=== PATIENT | male | born 1970 | race African-American/Black ===

== ENCOUNTER 2022-03-18 23:37 | Emergency (ER) | payer OTHER ==
[~2022-03-18] VITALS: Ht 175.3 cm; Wt 34.0 kg
--- NOTE | 2022-03-18 23:45 | NUR ---
BIBRA 89 FROM HOME C/O WEAKNESS, SYNCOPAL EPISODE WHEN HAD BLOODY STOOL IN RESTROOM; DENIES HITTING HEAD. DENIES TAKING BLOOD THINNERS. 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 EMS ADMIN NS 500ML PER EMS BS 360. PT A/OX4. TOLERATING R/A WELL WITH NO SOB. CONNECTED PT TO POX AND MONITOR.
--- NOTE | 2022-03-18 23:52 | NUR ---
WEAPONS SPECIALIST AT PT'S BEDSIDE
--- NOTE | 2022-03-18 23:59 | NUR ---
PATIENT CAME TO ER BED 09 WITH R AC # 20 ALREADY ESTABLISHED; ALL DUE MEDS GIVEN
[2022-03-19] MEDS ORDERED: IV NS 0.9% 1,000 ML BAG IV ONE
--- NOTE | 2022-03-19 00:01 | NUR ---
ADDENDUM: Intravenous End Time Documentation: 1. Normal saline 1 liter (IV-WO) : start time:0001 am; end time:0101 am : IV site:RAC PIV # 20 Port # 1 2. Magnesium 1 gm/ D5W 100 ml : start time:0233 am; end time:0303 am : IV site:RAC PIV # 20 Port # 2
--- NOTE | 2022-03-19 00:03 | NUR ---
COVID ANTIGEN SWAB COLLECTED AND SENT TO LAB
--- NOTE | 2022-03-19 00:06 | NUR ---
PRESENT AT BEDSIDE, PATIENT'S CLOTHING NOTED TO BE SOAKED; PER , PATIENT HAS BEEN SWEATING ON AND OFF;
[2022-03-19 00:19] LABS: BASOPHILS # (AUTO) 0.1 K/uL (0.0-0.2); BASOPHILS % (AUTO) 0.5 % (0.0-2.0); EOSINOPHILS % (AUTO) 2.7 % (0.0-6.0); HEMATOCRIT 32 % (39-51); HEMOGLOBIN 10.3 g/dL (13.5-17.5); LYMPHOCYTES # (AUTO) 2.5 K/uL (0.8-4.8); LYMPHOCYTES % (AUTO) 19.3 % (20.0-44.0); MEAN CORPUSCULAR HGB CONC 32 g/dl (31.0-36.0); MEAN CORPUSCULAR VOLUME 79 fL (80-96); MONOCYTES # (AUTO) 1.2 K/uL (0.1-1.30); NEUTROPHILS # (AUTO) 8.8 K/uL (1.8-8.9); NEUTROPHILS % (AUTO) 68.5 % (43.0-81.0); PLATELET COUNT (AUTO) 300 K/uL (150-450); RED BLOOD CELL COUNT(AUTO) 4.07 MIL/uL (4.5-6.0); WHITE BLOOD COUNT (AUTO) 12.8 K/uL (4.3-11.0)
--- NOTE | 2022-03-19 00:25 | NUR ---
PT COMPLAINT OF NAUSEA, EMESIS BAG PROVIDED
--- NOTE | 2022-03-19 00:29 | NUR ---
SWALLOW EVAL DONE, PT TOLERATED SMALL SIPS OF WATER WELL
[2022-03-19 00:32] LABS: CALCIUM, SERUM 8.2 mg/dL (8.5-10.1); CREATININE 1.2 mg/dL (0.6-1.3); POTASSIUM 2.9 mmol/L (3.5-5.1)
[2022-03-19 00:38] LABS: BILIRUBIN,DIRECT 0.1 mg/dL (0.0-0.2); BILIRUBIN,TOTAL 0.4 mg/dL (0.2-1.0); TOTAL PROTEIN, SERUM 6.8 g/dL (6.4-8.2)
--- NOTE | 2022-03-19 01:53 | NUR ---
DR FERNANDEZ ON PHONE WITH ANA NINA
[2022-03-19] MEDS ORDERED: Magnesium 1GM/D5W 100ML PREMIX 100 ML IV SCH (02:00)
[2022-03-19] MEDS ORDERED: POTASSIUM CHLORIDE 20 MEQ TAB.PRT.SR PO ONE ×2 (02:00→02:32)
[2022-03-19] MEDS ORDERED: Magnesium 1GM/D5W 100ML PREMIX 100 ML IV ONE (02:32)
--- NOTE | 2022-03-19 02:39 | NUR ---
ALL DUE MEDS GIVEN
[2022-03-19 04:17] VITALS: BP 114/68
--- NOTE | 2022-03-19 04:18 | NUR ---
PT ACCEPTED AT [facility] ROOM [id number] MEDSUR REPORT # ACCEPTING MD DR STEFAN Zhou PRN ETA [id number]
--- NOTE | 2022-03-19 04:48 | NUR ---
REPORT GIVEN TO KENYON SCHWARTZ FROM [facility] FOR [facility]
--- NOTE | 2022-03-19 04:50 | NUR ---
REPORT GIVEN TO EMS FOR PT TO TRANSFER TO [facility]
--- NOTE | 2022-03-19 04:58 | NUR ---
PT PICKED UP BY TRANSPORT, VSS; LEFT HOSPITAL IN STABLE CONDITION;
== END 2022-03-19 05:01 | disposition short-term general hospital (02) ==
LOC: ER 23:39
DX: K92.2 Gastrointestinal hemorrhage, unspecified (principal); D64.9 Anemia, unspecified; I95.9 Hypotension, unspecified; E11.9 Type 2 diabetes mellitus without complications; I10 Essential (primary) hypertension; Z20.822 Contact with and (suspected) exposure to COVID-19
CPT/HCPCS: 36415; 80048; 80076; 85025; 85730; 86850; 87426; 93005; 96361; 96365; 99291; C9803; J3475; J7030